=== PATIENT | male | born 2000 | race Caucasian/White ===

== ENCOUNTER 2021-02-26 18:49 | Emergency (ER) | payer OTHER ==
[~2021-02-26] VITALS: Ht 185.4 cm; Wt 81.8 kg
[2021-02-26] MEDS ORDERED: IBUPROFEN 600 MG TABLET PO ONE (20:15)
[2021-02-26 21:00] VITALS: BP 130/76
== END 2021-02-26 21:34 | disposition home or self-care (01) ==
LOC: EMS 18:53
DX: S93.402A Sprain of unspecified ligament of left ankle, initial encounter (principal); W18.39XA Other fall on same level, initial encounter; Y93.67 Activity, basketball; Y92.89 Other specified places as the place of occurrence of the external cause; Y99.8 Other external cause status
CPT/HCPCS: 29515; 99284